=== PATIENT | female | born 1975 | race Caucasian/White ===

== ENCOUNTER 2021-02-01 19:31 | Emergency (ER) | payer BC ==
--- NOTE | 2021-02-01 20:36 | EDM.PDOC ---
ED HPI GENERAL MEDICAL PROBLEM - General Chief Complaint: Respiratory Problem Stated Complaint: POSSIBLE COVID Time Seen by Provider: 02/01/21 20:15 Source of Information: Reports: Patient History Limitations: Reports: No Limitations - History of Present Illness INITIAL COMMENTS - FREE TEXT/NARRATIVE: Patient is a 46-year-old female who presents today for possible Covid. Patient she went to a wedding and a few of the cast there also tested positive. She came in today because she called the clinic and they told her to come in for evaluation. Patient dates her symptoms were worse a few days ago but she feels a lot better today. She has some shortness of breath but feels he has good area. She denies any cough. She had a fever a few days ago but no fever today. She denies any other associated symptoms. Bilateral Generalized Pain Score (Numeric/FACES): 3 - Related Data Allergies Allergy/AdvReac Type Severity Reaction Status Date / Time No Known Allergies Allergy Verified 03/14/14 23:38 ED ROS GENERAL - Review of Systems Review Of Systems: See Below Constitutional: Reports: No Symptoms HEENT: Reports: No Symptoms Respiratory: Reports: Cough Cardiovascular: Reports: No Symptoms Endocrine: Reports: No Symptoms GI/Abdominal: Reports: No Symptoms : Reports: No Symptoms Musculoskeletal: Reports: No Symptoms Skin: Reports: No Symptoms Neurological: Reports: No Symptoms Psychiatric: Reports: No Symptoms Hematologic/Lymphatic: Reports: No Symptoms Immunologic: Reports: No Symptoms ED EXAM, GENERAL - Physical Exam Exam: See Below Exam Limited By: No Limitations General Appearance: Alert, WD/WN, No Apparent Distress Eye Exam: Bilateral Eye: EOMI, PERRL Throat/Mouth: Normal Inspection Head: Atraumatic, Normocephalic Neck: Normal Inspection, Supple, Non-Tender Respiratory/Chest: No Respiratory Distress, Lungs Clear, Normal Breath Sounds Cardiovascular: Normal Peripheral Pulses, Regular Rate, Rhythm GI/Abdominal: Normal Bowel Sounds, Soft, Non-Tender Extremities: Normal Inspection, Normal Range of Motion Neurological: Alert, Oriented, CN II-XII Intact, Normal Cognition, Normal Gait Course - Vital Signs Last Recorded V/S: Last Vital Signs Temp 97.6 F 02/01/21 20:47 Pulse 99 02/01/21 20:47 Resp 18 02/01/21 20:47 BP 120/79 02/01/21 20:47 Pulse Ox 99 02/01/21 20:47 - Orders/Labs/Meds Labs: Laboratory Tests 02/01/21 02/01/21 02/01/21 Range/Units 20:25 20:25 20:35 Urine Color YELLOW Urine Appearance CLEAR Urine pH 6.0 (5.0-8.0) Ur Specific Bristow 1.020 (1.001-1.035) Urine Protein NEGATIVE (NEGATIVE) mg/dL Urine Glucose (UA) NEGATIVE (NEGATIVE) mg/dL Urine Ketones 15 H (NEGATIVE) mg/dL Urine Occult Blood MODERATE H (NEGATIVE) Urine Nitrite NEGATIVE (NEGATIVE) Urine Bilirubin NEGATIVE (NEGATIVE) Urine Urobilinogen 0.2 (<2.0) EU/dL Ur Leukocyte Esterase TRACE H (NEGATIVE) Urine RBC 4-8 (0-2/HPF) Urine WBC 0-1 (0-5/HPF) Ur Epithelial Cells RARE (NONE-FEW) Urine Bacteria FEW (NEGATIVE) Urine Mucus LIGHT (NONE-MOD) Urine HCG, Qual NEGATIVE (NEGATIVE) SARS-CoV-2 RNA (HOLDEN) POSITIVE H (NEGATIVE) - Re-Assessments/Exams Free Text/Narrative Re-Assessment/Exam: 02/01/21 22:13 Patient is Covid positive. Patient also told about the x-ray finding that she did follow her primary care physician. Departure - Departure Time of Disposition: 22:13 Disposition: Home, Self-Care 01 Condition: Good Clinical Impression: COVID - Discharge Information *PRESCRIPTION DRUG MONITORING PROGRAM REVIEWED*: Not Applicable *COPY OF PRESCRIPTION DRUG MONITORING REPORT IN PATIENT RICH: Not Applicable Instructions: COVID-19: How to Protect Yourself and Others - CDC Referrals: PCP,None [Primary Care Provider] - Forms: ED Department Discharge Additional Instructions: The following information is given to patients seen in the emergency department who are being discharged to home. This information is to outline your options for follow-up care. We provide all patients seen in our emergency department with a follow-up referral. The need for follow-up, as well as the timing and circumstances, are variable depending upon the specifics of your emergency department visit. If you don't have a primary care physician on staff, we will provide you with a referral. We always advise you to contact your personal physician following an emergency department visit to inform them of the circumstance of the visit and for follow-up with them and/or the need for any referrals to a consulting specialist. The emergency department will also refer you to a specialist when appropriate. This referral assures that you have the opportunity for follow-up care with a specialist. All of these measure are taken in an effort to provide you with optimal care, which includes your follow-up. Under all circumstances we always encourage you to contact your private physician who remains a resource for coordinating your care. When calling for follow-up care, please make the office aware that this follow-up is from your recent emergency room visit. If for any reason you are refused follow-up, please contact the [facility] Emergency Department at and asked to speak to the emergency department charge nurse. Please follow up with your primary care physician. If you do not have a primary care physician, see below: [facility] [address] [place] [id number] [facility] [address] [place] [address] You were seen today for cough and shortness of breath. Oxygen level was good here. You are Covid positive. Also x-ray shows a nodule they were unsure what this nodule could be we recommend you follow-up with your primary care physician to have a repeat x-ray in the next 2 to 3 months. If you have any other concerning signs or symptoms please return to the ED. Sepsis Event Note (ED) - Focused Exam Vital Signs: Vital Signs Temp Pulse Resp BP Pulse Ox 02/01/21 20:47 97.6 F 99 18 120/79 99 02/01/21 20:30 97.6 F 91 18 120/79 99 - Assessment/Plan Assessment:: Patient is a 46-year-old female presents today for possible Covid. She reported a cough body aches and fever her symptoms have gotten better but she called the clinic I told her to come in for evaluation. On exam patient sat 90% on room air looks well lungs are clear. Will obtain x-ray Covid test and reassess.
--- NOTE | 2021-02-01 21:29 | CR ---
INDICATION: Shortness of breath TECHNIQUE: Chest radiograph 1 view COMPARISON: None FINDINGS: Mediastinum: The mediastinum is normal in appearance. The heart silhouette is normal in size and morphology. Lung: Mild apical pleural parenchymal scarring is noted bilaterally. There is a 1.2 cm irregular faint density in the right apex present. No pneumothorax is identified. Bone and Soft tissue: Unremarkable for age. IMPRESSION: 1. There is a 1.2 cm irregular faint density in the right apex present. This may represent a focus of scarring. Comparison with any prior outside imaging is recommended. If these cannot be obtained, follow up chest radiograph in 3 months is warranted to document stability. Dictated by Ottoniel Fowler MD @ 02/01/2021 9:27:18 PM Dictated by: Ottoniel Fowler MD @ 02/01/2021 21:27:25 (Electronically Signed)
[2021-02-02 00:41] VITALS: BP 113/75; PULSE 80
== END 2021-02-01 22:25 | disposition home or self-care (01) ==
LOC: MW.ED 19:31
DX: U07.1 COVID-19 (principal)
CPT/HCPCS: 71045; 71045-26; 81001; 81025; 99283-25; U0002

== ENCOUNTER 2021-02-03 12:26 | Emergency (ER) | payer BC ==
[2021-02-03] MEDS ORDERED: Lactated Ringers 1,000 ML IV SCH (13:15)
[2021-02-03 13:58] LABS: CARBON DIOXIDE,CO2 27.4 mmol/L (21.0-32.0); POTASSIUM,K 3.7 mmol/L (3.5-5.1)
--- NOTE | 2021-02-03 18:38 | EDM.PDOC ---
ED HPI GENERAL MEDICAL PROBLEM - General Chief Complaint: Respiratory Problem Stated Complaint: SOB COVID POS Time Seen by Provider: 02/03/21 12:39 - History of Present Illness INITIAL COMMENTS - FREE TEXT/NARRATIVE: CHIEF COMPLAINT(S): "I feel like I am losing to Covid." HISTORY OF PRESENT ILLNESS: This is a 46-year-old woman overall healthy who presents to the emergency department with "I feel like I am losing to Covid." The patient states that she was diagnosed 7 days ago with Covid. She states that since that time she feels like she is losing Covid. She states that she cannot sleep and this is because she feels like she cannot catch her breath. She denies any cough except occasionally and denies any fevers. She states that she has been having diarrhea which is nonbloody and she is experiencing some fatigue. She denies any abdominal pain. She has tried some Imodium without any relief. She denies any lower extremity edema, chest pain, recent travel, recent surgery or prior history of DVT or PE. She denies any syncopal episodes. She states that she was not vaccinated. REVIEW OF SYSTEMS: Constitutional: Positive for fatigue denies fever, chills. Eyes: Denies eye pain Ears, Nose, Mouth, & Throat: Denies earache Cardiovascular: Denies chest pain Respiratory: Positive shortness of breath and occasional cough Gastrointestinal: Denies Nausea, vomiting, diarrhea, hematochezia. Genitourinary: Denies hematuria Skin:Denies a rash MSK: Denies joint pain Neurological: Denies blurred vision Psychiatric: Denies depression PAST MEDICAL HISTORY: As per history of present illness and as reviewed below otherwise noncontributory. SURGICAL HISTORY: As per history of present illness and as reviewed below otherwise noncontributory. SOCIAL HISTORY: As per history of present illness and as reviewed below otherwise noncontributory. FAMILY HISTORY: As per history of present illness and as reviewed below otherwise noncontributory. EXAMINATION OF ORGAN SYSTEMS/BODY AREAS: Constitutional: Blood pressure is 114/64, heart rate 85, respiratory rate 18 with an oxygen saturation of 97% on room air. Temperature 37.0 General: Well-appearing woman who is in no acute distress Psychiatric: Appropriate mood and affect. Eyes: No scleral icterus or conjunctival erythema ENMT: Moist mucous membranes. No pharyngeal erythema Cardiovascular: Regular, rate, and rhythm. No gallops, murmurs, or rubs. Bilateral upper extremity pulses symmetric and intact. No peripheral edema. No JVD. Respiratory: Lungs clear to auscultation bilaterally. No wheezes, rales, or rhonchi. Gastrointestinal: Soft, non-tender, non-distended. Normoactive bowel sounds Genitourinary: No suprapubic tenderness Musculoskeletal: Normal range of motion. Skin: No lesions or abrasions. Neurological: Alert, GCS 15 MEDICAL DECISION MAKING AND COURSE IN THE ED WITH INTERPRETATION/REVIEW OF DIAGNOSTIC STUDIES: This is a 46-year-old woman with a past medical history of Covid diagnosis approximately 7 days ago who is overall healthy who comes to the emergency department with dyspnea, occasional cough and fatigue. At this time the patient does have normal vital signs however given her COVID-19 pneumonia and dyspnea will obtain a CT angiogram chest to evaluate for pulmonary embolism. We will just obtain screening labs including CBC and CMP given the diarrhea. We will provide the patient with 1 L of lactated Ringer's bolus and reevaluate. She was amenable to this plan. Laboratory: CBC is unremarkable. CMP reveals hyponatremia 129, hypochloremia at 93, hyperglycemia 116 and mild elevation in AST at 49. corporate staff accountant contacted me as they were unable to obtain IV access after approximately 7-8 attempts. It was significantly busy in the emergency department with critical patients therefore there was a delay in placement of a IV. With the help of ultrasound guidance a right upper extremity 18-gauge peripheral IV was placed without any complications. As patient was going to CT the patient's IV line blew and infiltrated some of the lactated Ringer's. Therefore at this time given that she is difficult IV access will obtain a D-dimer. If negative we will not pursue any further angiogram. If positive we will obtain AN ultrasound IV and obtain angiogram of the chest. She was amenable to this plan. Laboratory: D-dimer is negative. Given that the D-dimer is negative very low chance that the patient have a pulmonary embolism. I discussed that at this time that she is still not through the way that she is approximately 3 days until she can come out of isolation. She is to return for any new or worsening symptoms. She is to follow-up with her primary care physician after the 3-day isolation as recommended by CDC. She was amenable to discharge at this time and had no further questions. DISPOSITION: The patient was discharged home in stable condition. The patient will follow up with primary physician in 3 days CONDITION: Fair PROCEDURES: Right upper extremity ultrasound-guided peripheral IV insertion FINAL IMPRESSION(S)/DIAGNOSES: Acute dyspnea secondary to COVID-19 infection Eliazar Cruz M.D. - Related Data Allergies Allergy/AdvReac Type Severity Reaction Status Date / Time No Known Allergies Allergy Verified 03/14/14 23:38 Past Medical History - Past Health History Medical/Surgical History: Denies Medical/Surgical History - Infectious Disease History Infectious Disease History: Reports: Pertussis (Whooping Cough) Social & Family History - Caffeine Use Caffeine Use: Reports: None ED ROS GENERAL - Review of Systems Review Of Systems: See Below ED EXAM, GENERAL - Physical Exam Exam: See Below Course - Vital Signs Last Recorded V/S: Last Vital Signs Temp 37.0 C 02/03/21 12:45 Pulse 80 02/03/21 19:08 Resp 18 02/03/21 19:08 BP 111/67 02/03/21 19:08 Pulse Ox 97 02/03/21 19:08 - Orders/Labs/Meds Labs: Laboratory Tests 02/03/21 02/03/21 02/03/21 Range/Units 13:24 13:24 18:00 WBC 4.71 (4.0-11.0) K/uL RBC 4.49 (4.30-5.90) M/uL Hgb 13.5 (12.0-16.0) g/dL Hct 38.5 (36.0-46.0) % MCV 85.7 (80.0-98.0) fL MCH 30.1 (27.0-32.0) pg MCHC 35.1 (31.0-37.0) g/dL RDW Std Deviation 38.0 (28.0-62.0) fl RDW Coeff of Lizandro 12 (11.0-15.0) % Plt Count 159 (150-400) K/uL MPV 11.10 (7.40-12.00) fL Neut % (Auto) 73.1 (48.0-80.0) % Lymph % (Auto) 7.0 L (16.0-40.0) % Bonner % (Auto) 19.7 H (0.0-15.0) % Eos % (Auto) 0.0 (0.0-7.0) % Baso % (Auto) 0.2 (0.0-1.5) % Neut # (Auto) 3.4 (1.4-5.7) K/uL Lymph # (Auto) 0.3 L (0.6-2.4) K/uL Bonner # (Auto) 0.9 H (0.0-0.8) K/uL Eos # (Auto) 0.0 (0.0-0.7) K/uL Baso # (Auto) 0.0 (0.0-0.1) K/uL Nucleated RBC % 0.0 /100WBC Nucleated RBCs # 0 K/uL D-Dimer, Quantitative 0.35 (0.0-0.50) mg/L FEU Sodium 129 L (136-145) mmol/L Potassium 3.7 (3.5-5.1) mmol/L Chloride 93 L (98-107) mmol/L Carbon Dioxide 27.4 (21.0-32.0) mmol/L BUN 6 L (7.0-18.0) mg/dL Creatinine 1.0 (0.6-1.0) mg/dL Est Cr Clr Drug Dosing 64.04 mL/min Estimated GFR (MDRD) 59.2 ml/min Glucose 116 H (74-106) mg/dL Calcium 7.8 L (8.5-10.1) mg/dL Total Bilirubin 0.3 (0.2-1.0) mg/dL AST 49 H (15-37) IU/L ALT 53 (14-63) IU/L Alkaline Phosphatase 74 (46-116) U/L Total Protein 7.2 (6.4-8.2) g/dL Albumin 3.4 (3.4-5.0) g/dL Globulin 3.8 (2.6-4.0) g/dL Albumin/Globulin Ratio 0.9 (0.9-1.6) Meds: Medications Discontinued Medications Generic Name Dose Route Start Last Admin Trade Name Freq PRN Reason Stop Dose Admin Lactated Ringer's 1,000 mls @ 999 mls/hr 02/03/21 13:15 02/03/21 13:29 Ringers, Lactated IV 999 mls/hr ASDIRECTED DORA Administration Departure - Departure Time of Disposition: 18:38 Disposition: Home, Self-Care 01 Condition: Fair Clinical Impression: COVID, Diarrhea - Discharge Information *PRESCRIPTION DRUG MONITORING PROGRAM REVIEWED*: No *COPY OF PRESCRIPTION DRUG MONITORING REPORT IN PATIENT RICH: No Instructions: Shortness of Breath, Adult, [id number], 10 Things You Can Do to Manage Your COVID-19 Symptoms at Home - [facility] (12/05/2019), Diarrhea, Adult, [id number] Referrals: PCP,None [Primary Care Provider] - Forms: ED Department Discharge Additional Instructions: Your evaluated today on an emergent basis. At this time your work-up was negative. I do recommend that she continue with fluid hydration with Pedialyte, Gatorade. As discussed your diarrhea should improve with time. If you have any worsening chest pain or shortness of breath I would like you to return to the emergency department. Otherwise please follow-up with primary care physician. You should take acetaminophen 500-1000 mg every 6 hours as needed for fever and muscle aches. Please drink plenty of fluids and get plenty of rest over the next several days. We would recommend that she get a pulse oximeter from the pharmacy to keep an eye on your oxygen level. If your oxygen level drops below 91%, you should return to the ED for evaluation. You should return to the ER sooner if you start having any symptoms of shortness of breath or any other new or concerning symptoms. 1. Your COVID-19 screening is positive. That means you do have the coronavirus and you are considered contagious. Your vital signs and oxygen saturation are well enough that you were able to monitor your symptoms at home. Continue to monitor for trouble breathing, new confusion or inability to arouse, bluish lips or face or any of the other symptoms we discussed -if this occurs please return to the emergency room. 2. Please self quarantine over the next 10 days. Inform any persons that you have been in contact with since you started becoming symptomatic that you have tested positive; they should be made aware and take the appropriate steps as needed. 3. May alternate Tylenol and ibuprofen as needed for pain and fever management. 4. The [facility] department will be calling you and following up with you. The [place] COVID 19 Hotline phone number , They are open Tuesday - Tuesday 7am - 7pm. Follow up with your primary care provider for re-evaluation and re-testing after the 10 day quarantine and discuss when you should be seen. [facility] - [facility] [address] [place] [address] [facility] [address] [place] [address] The patient is informed of any results of their evaluation and diagnostic workup and all questions are answered. They are given discharge instructions and return precautions. The patient is stable for discharge. The patient states they understand and agree with the plan and that they will return if their symptoms get worse or if they have any new concerns. The following information is given to patients seen in the emergency department who are being discharged to home. This information is to outline your options for follow-up care. We provide all patients seen in our emergency department with a follow-up referral. The need for follow-up, as well as the timing and circumstances, are variable depending upon the specifics of your emergency department visit. If you don't have a primary care physician on staff, we will provide you with a referral. We always advise you to contact your personal physician following an emergency department visit to inform them of the circumstance of the visit and for follow-up with them and/or the need for any referrals to a consulting specialist. The emergency department will also refer you to a specialist when appropriate. This referral assures that you have the opportunity for follow-up care with a specialist. All of these measure are taken in an effort to provide you with optimal care, which includes your follow-up. Under all circumstances we always encourage you to contact your private physician who remains a resource for coordinating your care. When calling for follow-up care, please make the office aware that this follow-up is from your recent emergency room visit. If for any reason you are refused follow-up, please contact the [facility] Emergency Department at and asked to speak to the emergency department charge nurse.
[2021-02-03 19:09] VITALS: BP 111/67; PULSE 80
== END 2021-02-03 19:03 | disposition home or self-care (01) ==
LOC: MW.ED 12:26
DX: U07.1 COVID-19 (principal); R19.7 Diarrhea, unspecified
CPT/HCPCS: 36415; 80053; 85025; 85379; 99284; J7120; 99283